=== PATIENT | male | born 1985 | race Caucasian/White ===

== ENCOUNTER 2020-05-07 20:09 | Emergency (ER) | payer OTHER, SELFPAY ==
[~2020-05-07] VITALS: Ht 177.8 cm; Wt 97.5 kg
[2020-05-07 20:11] VITALS: BP 132/89; Ht 177.8 cm; Wt 97.5 kg
== END 2020-05-07 20:30 | disposition home or self-care (01) ==
LOC: ED 20:09
DX: R53.1 Weakness (principal); R50.9 Fever, unspecified; R19.7 Diarrhea, unspecified; M79.10 Myalgia, unspecified site; R53.83 Other fatigue; Z20.822 Contact with and (suspected) exposure to COVID-19
CPT/HCPCS: U0003